=== PATIENT | male | born 2000 | race Caucasian/White ===

== ENCOUNTER 2024-07-16 20:28 | Emergency (ER) | payer MEDICAID ==
[~2024-07-16] VITALS: Ht 182.9 cm; Wt 125.0 kg
[2024-07-16 20:33] VITALS: O2SAT 98
[2024-07-16 20:59] VITALS: TEMP 36.9; O2SAT 99
[2024-07-16] MEDS ORDERED: IBUPROFEN 800MG TABLET PO ONE (23:00)
[2024-07-16] MEDS ORDERED: NAPR-1176 MT (23:11)
[2024-07-16 23:53] VITALS: BP 134/91; PULSE 77; RESP 18
[2024-07-16] MEDS: IBUPROFEN 800MG TABLET PO NR (23:53)
== END 2024-07-16 23:42 | disposition home or self-care (01) ==
LOC: ER 20:28
DX: S09.90XA Unspecified injury of head, initial encounter (principal); M54.50 Low back pain, unspecified; V43.52XA Car driver injured in collision with other type car in traffic accident, initial encounter; Y93.89 Activity, other specified; Y92.89 Other specified places as the place of occurrence of the external cause; Y99.8 Other external cause status
CPT/HCPCS: 99282